=== PATIENT | male | born 1980 | race Caucasian/White ===

== ENCOUNTER 2019-06-01 20:54 | Observation (INO) ==
[2019-06-01 21:27] LABS: Basophils % 0.3 % (0.1-2.0); Eosinophils # 0.1 K/mm3 (0.0-0.4); Eosinophils % 0.7 % (0.1-12.0); Hematocrit 42.4 % (42.0-52.0); Hemoglobin 14.4 g/dL (14.1-18.0); Lymphocytes # 1.8 K/mm3 (0.7-4.5); Lymphocytes % 11.2 % (10-50); Mean Corpuscular HGB Conc 34.1 g/dL (31.8-35.4); Mean Corpuscular Volume 87.9 fl (80-94); Mean Platelet Volume 6.8 fl (7.4-10.4); Monocytes # 1.1 K/mm3 (0.1-1.0); Neutrophils % 80.9 % (37.0-80.0); Platelet Count 325 K/mm3 (142-424); Red Blood Count 4.82 M/mm3 (4.60-6.20); Red Cell Distribution Width 13.2 % (11.5-17.5); White Blood Count 16.1 K/mm3 (4.8-10.8)
[2019-06-01 21:40] LABS: Albumin Level 3.6 gm/dL (3.4-5.0); Albumin/Globulin Ratio 0.8 (1.1-1.8); Anion Gap 12.6 mEq/L (5-15); Bilirubin,Total 0.4 mg/dL (0.2-1.0); Calcium 8.6 mg/dL (8.5-10.1); Globulin 4.7 gm/dl (1.3-3.2); Total Protein,Serum 8.3 gm/dL (6.4-8.2)
[2019-06-01 22:00] LABS: Erythrocyte Sedimentation Rate 27 mm/hr (0-15)
[2019-06-01 22:08] LABS: Lymphocytes % 13 % (10-50); Neutrophils % 83 % (42-76); RBC Morphology Normal; Total Cells Counted 100
--- NOTE | 2019-06-01 22:09 | Emergency Department Note ---
ED Disposition Clinical Impression: Tobacco use, IVDU (intravenous drug user) Abscess of skin or subcutaneous tissue Qualifiers: Site of cutaneous abscess: extremity Site of cutaneous abscess of extremity: upper extremity Laterality: left Qualified Code(s): L02.414 - Cutaneous abscess of left upper limb Disposition: Admitted as Observation Condition on Discharge: Good Instructions: DI for Skin Abscess Referrals: Mary Parker APRN [Primary Care Provider] - - Critical Care Critical Care Time: No Attestation: On 06/01/19, the high probability of a clinically significant, sudden or life threatening deterioration of the following system(s) required my full and direct attention, intervention and personal management. The time I documented below is in addition to time spent performing reported procedures but includes the following listed in this critical care notation. Medical Decision Making - Medical Records Medical records reviewed: Yes: I reviewed the patient's medical records. - Juan Inquiry Pt receiving controlled substance: No Vital Signs: 06/01/19 21:01 Temperature 99.4 F Temperature Source Oral Pulse Rate [Right Radial] 117 H Respiratory Rate 18 Blood Pressure [Right Arm] 161/100 H Blood Pressure Mean [Right Arm] 120 02 Sat by Pulse Oximetry 99 - Lab Data Lab results reviewed: Yes: I reviewed the patient's lab results. Lab Results 06/01/19 21:15: WBC 16.1 H, RBC 4.82, Hgb 14.4, Hct 42.4, MCV 87.9, MCH 29.9, MCHC 34.1, RDW 13.2, Plt Count 325, MPV 6.8 L, Neut % (Auto) 80.9 H, Lymph % (Auto) 11.2, [place] % (Auto) 7.0, Eos % (Auto) 0.7, Baso % (Auto) 0.3, Neut # (Auto) 13.0 H, Lymph # (Auto) 1.8, [place] # (Auto) 1.1 H, Eos # (Auto) 0.1, Baso # (Auto) 0.0, ESR 27 H 06/01/19 21:15: Sodium 140, Potassium 3.6, Chloride 103, Carbon Dioxide 28, Anion Gap 12.6, BUN 13, Creatinine 1.40 H, Estimated Creat Clear 79, Estimated GFR 57 L, Est GFR ( Amer) 69, Glucose 96, Calcium 8.6, Total Bilirubin 0.4, AST 10 L, ALT 12, Alkaline Phosphatase 89, C-Reactive Protein 1.0 H, Total Protein 8.3 H, Albumin 3.6, Globulin 4.7 H, Albumin/Globulin Ratio 0.8 L 06/01/19 21:15: Lactate 1.7 Result diagrams: 06/01/19 21:15 06/01/19 21:15 Orders (Tests/Meds): ED MEDICATIONS Generic Name Dose Route Start Last Admin Trade Name Freq PRN Reason Stop Dose Admin Sodium Chloride 1,000 mls @ 999 mls/hr 06/01/19 21:15 06/01/19 21:20 Sod Chlor 0.9% 1000ml Bag IV 06/01/19 22:15 999 mls/hr .Q1H1M ROSS Administration Discontinued Medications Generic Name Dose Route Start Last Admin Trade Name Freq PRN Reason Stop Dose Admin Ketorolac Tromethamine 30 mg 06/01/19 21:48 06/01/19 21:50 Toradol 30mg/Ml Vial IV 06/01/19 21:49 30 mg ONCE ONE Administration ORDERS Category Date Time Status XR elbow LT 2V Stat Exams 06/01/19 21:08 Taken Complete Blood Count Auto Diff Stat Lab 06/01/19 21:15 Results Erythrocyte Sedimentation Rate Stat Lab 06/01/19 21:15 Results Blood Culture Stat Micro 06/01/19 21:15 Received Skin/Abscess/FB HPI - General Chief complaint: Skin/Abscess/Foreign Body Stated complaint: left arm swollen Time Seen by Provider: 06/01/19 22:06 Mode of Arrival: Ambulatory Source of Information: Patient, Spouse, Medical Record Limitations: No Limitations Description of Symptoms (Recalled from ER Triage Doc. by RN): pt states he is an iv drug abuser and he states that his left elbow area is red swollen and painful. - History of Present Illness HPI narrative: pt reports ivdu and has swollen lx antecubital area - he denied any other c/o issues MD complaint: abscess/boil Onset (ago): hour(s) Tetanus up to date: unsure Location: LUE Severity: moderate Associated symptoms: denies other symptoms Treatments prior to arrival: none - Related Data Home Medications Medication Instructions Recorded Confirmed No Known Home Medications 06/01/19 06/01/19 Allergies Allergy/AdvReac Type Severity Reaction Status Date / Time No Known Allergies Allergy Verified 06/01/19 21:07 [facility] History - Hepatitis A Screen Drug use history?: Yes High risk sexual behaviors?: No History of sexually transmitted infection?: No Currently employed?: No Childcare worker?: No Do you have indoor plumbing?: Yes Do you have electricity?: Yes Attestation statement:: This patient has been screened for Hepatitis A risk factors. I have reviewed the patient's past medical history: Yes Medical History: Denies:: Cancer, Diabetes Mellitus Type 1, Diabetes Mellitus Type 2, MRSA Amputation: No - Social History Smoking Status: Current every day smoker # Packs/Day (cigarettes): 1 Alcohol Intake: never Substance Use Type: IV drugs, methamphetamine Occupational Status: unemployed ROS Obtained: Yes All systems reviewed & no additional complaints - Constitutional Constitutional: Denies fever(s) - Eyes Eyes: Denies change in vision - ENT Ears, Nose, Mouth, and Throat: Denies sore throat - Cardiovascular Cardiovascular: Denies chest pain - Respiratory Respiratory: No cough - Gastrointestinal Gastrointestingal: Denies: abdominal pain - Genitourinary Male Genitourinary: Denies hematuria - Musculoskeletal Musculoskeletal: Denies joint swelling - Integumentary/Breasts Skin/Breast: Reports as per HPI, Reports boil - Neurologic Neurologic: Denies seizure-like activity Physical Exam - General General appearance: alert - Head Head exam: normocephalic - Eye Eye exam: Present: PERRL, EOMI - ENT ENT exam: Present: mucous membranes dry - Neck Neck exam: Present: trachea midline - Respiratory Respiratory exam: Absent: respiratory distress - Cardiovascular Cardiovascular exam: Present: regular rate. Absent: systolic murmur, rubs - Abdominal Exam Abdominal exam: Present: soft - Extremities Exam Extremities exam: Absent: full ROM - Expanded Upper Extremity Exam Left Elbow exam: Present: tenderness, swelling, erythema. Absent: effusion - Expanded Lower Extremity Exam Left Neurovascular/Tendon exam: Present: normal capillary refill - Neurological Exam Neurological exam: Present: alert, oriented X3, CN II-XII intact - Psychiatric Psychiatric exam: Present: normal affect - Skin Skin exam: Present: other (no def abscess). Absent: rash
[2019-06-02 07:14] LABS: Basophils % 0.2 % (0.1-2.0); Eosinophils # 0.1 K/mm3 (0.0-0.4); Eosinophils % 0.7 % (0.1-12.0); Hematocrit 37.9 % (42.0-52.0); Lymphocytes # 2.3 K/mm3 (0.7-4.5); Lymphocytes % 13.4 % (10-50); Mean Corpuscular HGB Conc 33.3 g/dL (31.8-35.4); Mean Platelet Volume 6.9 fl (7.4-10.4); Monocytes # 1.4 K/mm3 (0.1-1.0); Monocytes % 8.4 % (1.7-9.3); Neutrophils # 13.2 K/mm3 (1.8-7.8); Neutrophils % 77.3 % (37.0-80.0); Platelet Count 263 K/mm3 (142-424); Red Blood Count 4.25 M/mm3 (4.60-6.20); Red Cell Distribution Width 13.5 % (11.5-17.5); White Blood Count 17.1 K/mm3 (4.8-10.8)
[2019-06-02 07:20] LABS: Anion Gap 9.9 mEq/L (5-15); Calcium 8.1 mg/dL (8.5-10.1)
[2019-06-02 07:34] LABS: Hemoglobin 12.6 g/dL (14.1-18.0)
--- NOTE | 2019-06-02 08:14 | Pharmacy Consult Notes ---
[facility] Pharmacy VTE Monitoring - Patient Demographics Admission date: 06/01/19 Report Date: 06/02/19 Time: 08:14 Allergies/Adverse Reactions: Patient Allergies No Known Allergies Allergy (Verified 06/01/19 21:07) Height: 1.85 m Weight: 79.435 kg Patient Problems: Current Active Problems Abscess of skin or subcutaneous tissue (Acute) Tobacco use (Acute) IVDU (intravenous drug user) (Acute) - VTE Risk Labs: VTE Related Lab Results Hgb 12.6 g/dL (14.1-18.0) L D 06/02/19 06:50 Hct 37.9 % (42.0-52.0) L 06/02/19 06:50 Plt Count 263 K/mm3 (142-424) 06/02/19 06:50 BUN 14 mg/dL (7-18) 06/02/19 06:50 Creatinine 1.18 mg/dL (0.70-1.30) 06/02/19 06:50 Estimated Creat Clear 96 mL/min (50-200) 06/02/19 06:50 Was VTE Risk Assessment Performed: No VTE Score: 0 VTE Risk Level: Very Low Risk - Prophylaxis VTE Prophylaxis Ordered?: Yes Types of VTE Prophylaxis: TEDS Knee High Location of Applied Device: Bilateral Lower Extremeties
--- NOTE | 2019-06-02 08:25 | Pharmacy Consult Notes ---
- Pharmacy Consult Date: 06/02/19 Time: 08:24 Referring provider: DR. CHAVEZ Reason for Consult:: VANCOMYCIN DOSING Allergies and ADEs:: Allergies Allergy/AdvReac Type Severity Reaction Status Date / Time No Known Allergies Allergy Verified 06/01/19 21:07 Home Medications:: Home Medications Medication Instructions Recorded Confirmed Type Gabapentin [Gabapentin 400mg Cap] 800 mg PO TID 06/01/19 06/01/19 History Height: 1.85 m Weight: 79.435 kg Laboratory Results:: Laboratory Results - last 24 hr 06/01/19 21:15: WBC 16.1 H, RBC 4.82, Hgb 14.4, Hct 42.4, MCV 87.9, MCH 29.9, MCHC 34.1, RDW 13.2, Plt Count 325, MPV 6.8 L, Neut % (Auto) 80.9 H, Lymph % (Auto) 11.2, [place] % (Auto) 7.0, Eos % (Auto) 0.7, Baso % (Auto) 0.3, Neut # (Auto) 13.0 H, Lymph # (Auto) 1.8, [place] # (Auto) 1.1 H, Eos # (Auto) 0.1, Baso # (Auto) 0.0, Total Counted 100, Neutrophils % (Manual) 83 H, Band Neutrophils % 4.0, Lymphocytes % (Manual) 13, Platelet Estimate Normal, RBC Morphology Normal, ESR 27 H 06/01/19 21:15: Sodium 140, Potassium 3.6, Chloride 103, Carbon Dioxide 28, Anion Gap 12.6, BUN 13, Creatinine 1.40 H, Estimated Creat Clear 79, Estimated GFR 57 L, Est GFR ( Amer) 69, Glucose 96, Calcium 8.6, Total Bilirubin 0.4, AST 10 L, ALT 12, Alkaline Phosphatase 89, C-Reactive Protein 1.0 H, Total Protein 8.3 H, Albumin 3.6, Globulin 4.7 H, Albumin/Globulin Ratio 0.8 L 06/01/19 21:15: Lactate 1.7 06/02/19 06:50: WBC 17.1 H, RBC 4.25 L, Hgb 12.6 L D, Hct 37.9 L, MCV 89.0, MCH 29.7, MCHC 33.3, RDW 13.5, Plt Count 263, MPV 6.9 L, Neut % (Auto) 77.3, Lymph % (Auto) 13.4, [place] % (Auto) 8.4, Eos % (Auto) 0.7, Baso % (Auto) 0.2, Neut # (Auto) 13.2 H, Lymph # (Auto) 2.3, [place] # (Auto) 1.4 H, Eos # (Auto) 0.1, Baso # (Auto) 0.0 06/02/19 06:50: Sodium 138, Potassium 3.9, Chloride 105, Carbon Dioxide 27, Anion Gap 9.9, BUN 14, Creatinine 1.18, Estimated Creat Clear 96, Estimated GFR 69, Est GFR ( Amer) 84 D, Glucose 118 H D, Calcium 8.1 L Medical History: Reports:: Hypertension Denies:: Cancer, Diabetes Mellitus Type 1, Diabetes Mellitus Type 2, MRSA Assessment and Plan - Assessment and plan all Dx Assessment and Plan for all problems:: BASED ON PATIENT FACTORS, RECOMMEND VANCOMYCIN 1500 MG IV Q12H. PHARMACY WILL MONITOR DAILY AND ADJUST APPROPRIATE.
[2019-06-02 08:28] LABS: Lymphocytes % 11 % (10-50); Monocytes % 10 % (2-9); Neutrophils % 77 % (42-76); RBC Morphology Normal; Total Cells Counted 100
--- NOTE | 2019-06-02 08:30 | Consult Report ---
*Admission Date: 06/01/19 *Reason for consult:: Left antecubital fossa infection *History of present illness: This is a 38-year-old gentleman with a history of IV drug abuse seen in consultation from Dr. Diaz after presenting with left antecubital fossa swelling and pain. He was diagnosed with cellulitis and possible early/small abscess. He was placed on vancomycin and the surgical service was consult. He states that he feels "much much better this morning". Review of Systems - Constitutional Denies fever(s) - Eyes Denies change in vision - ENT Denies difficulty swallowing - *Cardiovascular Denies chest pain - *Respiratory Denies cough - *Gastrointestinal Denies abdominal pain - Integumentary/Breasts Comments: Left antecubital fossa redness and swelling - *Neurologic Denies seizure-like activity [facility] History Medical History: Reports:: Hypertension Denies:: Cancer, Diabetes Mellitus Type 1, Diabetes Mellitus Type 2, MRSA *Have you ever received a pneumonia vaccine?: No *Have you received a flu vaccine this season?: Yes Amputation: No - *Social History Educational Level: Attended High School Smoking Status: Current every day smoker Tobacco Type: cigarettes # Packs/Day (cigarettes): 2 Alcohol Intake: current Alcohol Intake Frequency:: holidays/special occasions only Substance Use Type: marijuana, methamphetamine Last Used Substance: days (ago) *Occupational Status:: unemployed Household Members: spouse, children *Travel in the last 8 weeks: None - Psychiatric History Expresses thoughts of harming self/others: None Family Hx:: Unable to obtain Meds Home Medications Medication Instructions Recorded Confirmed Type Gabapentin [Gabapentin 400mg Cap] 800 mg PO TID 06/01/19 06/01/19 History Allergies Allergy/AdvReac Type Severity Reaction Status Date / Time No Known Allergies Allergy Verified 06/01/19 21:07 Exam Vital signs and Labs for Last 24 Hours: Temp Pulse Resp BP Pulse Ox 97.7 F 95 H 18 139/69 99 06/02/19 04:00 06/02/19 04:00 06/02/19 04:00 06/02/19 04:00 06/02/19 04:00 Laboratory Results - last 24 hr 06/01/19 21:15: WBC 16.1 H, RBC 4.82, Hgb 14.4, Hct 42.4, MCV 87.9, MCH 29.9, MCHC 34.1, RDW 13.2, Plt Count 325, MPV 6.8 L, Neut % (Auto) 80.9 H, Lymph % (Auto) 11.2, [place] % (Auto) 7.0, Eos % (Auto) 0.7, Baso % (Auto) 0.3, Neut # (Auto) 13.0 H, Lymph # (Auto) 1.8, [place] # (Auto) 1.1 H, Eos # (Auto) 0.1, Baso # (Auto) 0.0, Total Counted 100, Neutrophils % (Manual) 83 H, Band Neutrophils % 4.0, Lymphocytes % (Manual) 13, Platelet Estimate Normal, RBC Morphology Normal, ESR 27 H 06/01/19 21:15: Sodium 140, Potassium 3.6, Chloride 103, Carbon Dioxide 28, Anion Gap 12.6, BUN 13, Creatinine 1.40 H, Estimated Creat Clear 79, Estimated GFR 57 L, Est GFR ( Amer) 69, Glucose 96, Calcium 8.6, Total Bilirubin 0.4, AST 10 L, ALT 12, Alkaline Phosphatase 89, C-Reactive Protein 1.0 H, Total Protein 8.3 H, Albumin 3.6, Globulin 4.7 H, Albumin/Globulin Ratio 0.8 L 06/01/19 21:15: Lactate 1.7 06/02/19 06:50: WBC 17.1 H, RBC 4.25 L, Hgb 12.6 L D, Hct 37.9 L, MCV 89.0, MCH 29.7, MCHC 33.3, RDW 13.5, Plt Count 263, MPV 6.9 L, Neut % (Auto) 77.3, Lymph % (Auto) 13.4, [place] % (Auto) 8.4, Eos % (Auto) 0.7, Baso % (Auto) 0.2, Neut # (Auto) 13.2 H, Lymph # (Auto) 2.3, [place] # (Auto) 1.4 H, Eos # (Auto) 0.1, Baso # (Auto) 0.0 06/02/19 06:50: Sodium 138, Potassium 3.9, Chloride 105, Carbon Dioxide 27, Anion Gap 9.9, BUN 14, Creatinine 1.18, Estimated Creat Clear 96, Estimated GFR 69, Est GFR ( Amer) 84 D, Glucose 118 H D, Calcium 8.1 L I & O for Last 24 hours: Intake & Output 05/30/19 05/31/19 06/01/19 06/02/19 11:59 11:59 11:59 11:59 Intake Total 1350 / 1350 Balance 1350 / 1350 Weight 175 lb 2 oz - Constitutional no acute distress - *Routine Respiratory Exam Absent: respiratory distress - *Routine Cardiovascular Exam Present: RRR - *Routine Skin Exam Comments: Mild left antecubital fossa blush and mild and left antecubital fossa induration (improved per patient's report). No spreading cellulitis. No obvious fluctuance. Results - Labs 06/02/19 06:50 06/02/19 06:50 Laboratory Results - last 24 hr 06/01/19 21:15: WBC 16.1 H, RBC 4.82, Hgb 14.4, Hct 42.4, MCV 87.9, MCH 29.9, MCHC 34.1, RDW 13.2, Plt Count 325, MPV 6.8 L, Neut % (Auto) 80.9 H, Lymph % (Auto) 11.2, [place] % (Auto) 7.0, Eos % (Auto) 0.7, Baso % (Auto) 0.3, Neut # (A uto) 13.0 H, Lymph # (Auto) 1.8, [place] # (Auto) 1.1 H, Eos # (Auto) 0.1, Baso # (Auto) 0.0, Total Counted 100, Neutrophils % (Manual) 83 H, Band Neutrophils % 4.0, Lymphocytes % (Manual) 13, Platelet Estimate Normal, RBC Morphology Normal, ESR 27 H 06/01/19 21:15: Sodium 140, Potassium 3.6, Chloride 103, Carbon Dioxide 28, Anion Gap 12.6, BUN 13, Creatinine 1.40 H, Estimated Creat Clear 79, Estimated GFR 57 L, Est GFR ( Amer) 69, Glucose 96, Calcium 8.6, Total Bilirubin 0.4, AST 10 L, ALT 12, Alkaline Phosphatase 89, C-Reactive Protein 1.0 H, Total Protein 8.3 H, Albumin 3.6, Globulin 4.7 H, Albumin/Globulin Ratio 0.8 L 06/01/19 21:15: Lactate 1.7 06/02/19 06:50: WBC 17.1 H, RBC 4.25 L, Hgb 12.6 L D, Hct 37.9 L, MCV 89.0, MCH 29.7, MCHC 33.3, RDW 13.5, Plt Count 263, MPV 6.9 L, Neut % (Auto) 77.3, Lymph % (Auto) 13.4, [place] % (Auto) 8.4, Eos % (Auto) 0.7, Baso % (Auto) 0.2, Neut # ( Auto) 13.2 H, Lymph # (Auto) 2.3, [place] # (Auto) 1.4 H, Eos # (Auto) 0.1, Baso # (Auto) 0.0 06/02/19 06:50: Sodium 138, Potassium 3.9, Chloride 105, Carbon Dioxide 27, Anion Gap 9.9, BUN 14, Creatinine 1.18, Estimated Creat Clear 96, Estimated GFR 69, Est GFR ( Amer) 84 D, Glucose 118 H D, Calcium 8.1 L Assessment and Plan (1) Left arm cellulitis Current visit: Yes Status: Acute Category: Medical Code(s): L03.114 - C ellulitis of left upper limb Improving on vancomycin (2) Abscess of skin or subcutaneous tissue Current visit: Yes Status: Acute Qualifiers: Site of cutaneous abscess: extremity Site of cutaneous abscess of extremity: upper extremity Laterality: left Qualified Code(s): L02.414 - Cutaneous abscess of left upper limb Category: Medical Code(s): L02.91 - Cutaneous abscess, unspecified He has a possible very small/early abscess; however, definitive abscess for mation is questionable. He continues to show improvement on vancomycin and no obvious "drainable pocket" is present. Continue antibiotics No need for immediate surgical intervention Closely follow response to current therapy
--- NOTE | 2019-06-02 08:31 | H&P/Discharge Summary ---
General - General Admission date:: 06/01/19 Discharge date: 06/02/19 *Admission Date: 06/01/19 *Chief complaint: infection lt upper ext *History of present illness: this wm who has known ivdu presented to the ed with reddness and tender lt antecubital area - he denied any recent use of that area for ivdu- he has no other chronic disease - pt was admitted for iv abx and surg consult [facility] History I have reviewed the patient's past medical history: Yes Medical History: Reports:: Hypertension Denies:: Cancer, Diabetes Mellitus Type 1, Diabetes Mellitus Type 2, MRSA *Have you ever received a pneumonia vaccine?: No *Have you received a flu vaccine this season?: Yes Amputation: No - *Social History Educational Level: Attended High School Smoking Status: Current every day smoker Tobacco Type: cigarettes # Packs/Day (cigarettes): 2 Alcohol Intake: current Alcohol Intake Frequency:: holidays/special occasions only Substance Use Type: marijuana, methamphetamine Last Used Substance: days (ago) *Occupational Status:: unemployed Household Members: spouse, children *Travel in the last 8 weeks: None - Psychiatric History Expresses thoughts of harming self/others: None Family Hx:: Unable to obtain Review of Systems - Review of Systems Review of systems:: pertinent systems reviewed and negative unless documented below - Constitutional Denies fever(s) - Eyes Denies blurry vision - ENT Denies sore throat - *Cardiovascular Denies chest pain - *Respiratory Denies cough - *Gastrointestinal Denies abdominal pain - *Genitourinary Denies blood in urine - *Musculoskeletal Denies joint pain - Integumentary/Breasts Reports other (reddness lt antecubital ) - *Neurologic Denies localized weakness, Denies seizure-like activity - Psychiatric Denies anxiety Exam Vital signs and Labs for Last 24 Hours: Temp Pulse Resp BP Pulse Ox 97.7 F 95 H 18 139/69 99 06/02/19 04:00 06/02/19 04:00 06/02/19 04:00 06/02/19 04:00 06/02/19 04:00 Laboratory Results - last 24 hr 06/01/19 21:15: WBC 16.1 H, RBC 4.82, Hgb 14.4, Hct 42.4, MCV 87.9, MCH 29.9, MCHC 34.1, RDW 13.2, Plt Count 325, MPV 6.8 L, Neut % (Auto) 80.9 H, Lymph % (Auto) 11.2, [place] % (Auto) 7.0, Eos % (Auto) 0.7, Baso % (Auto) 0.3, Neut # (Auto) 13.0 H, Lymph # (Auto) 1.8, [place] # (Auto) 1.1 H, Eos # (Auto) 0.1, Baso # (Auto) 0.0, Total Counted 100, Neutrophils % (Manual) 83 H, Band Neutrophils % 4.0, Lymphocytes % (Manual) 13, Platelet Estimate Normal, RBC Morphology Normal, ESR 27 H 06/01/19 21:15: Sodium 140, Potassium 3.6, Chloride 103, Carbon Dioxide 28, Anion Gap 12.6, BUN 13, Creatinine 1.40 H, Estimated Creat Clear 79, Estimated GFR 57 L, Est GFR ( Amer) 69, Glucose 96, Calcium 8.6, Total Bilirubin 0.4, AST 10 L, ALT 12, Alkaline Phosphatase 89, C-Reactive Protein 1.0 H, Total Protein 8.3 H, Albumin 3.6, Globulin 4.7 H, Albumin/Globulin Ratio 0.8 L 06/01/19 21:15: Lactate 1.7 06/02/19 06:50: WBC 17.1 H, RBC 4.25 L, Hgb 12.6 L D, Hct 37.9 L, MCV 89.0, MCH 29.7, MCHC 33.3, RDW 13.5, Plt Count 263, MPV 6.9 L, Neut % (Auto) 77.3, Lymph % (Auto) 13.4, [place] % (Auto) 8.4, Eos % (Auto) 0.7, Baso % (Auto) 0.2, Neut # (Auto) 13.2 H, Lymph # (Auto) 2.3, [place] # (Auto) 1.4 H, Eos # (Auto) 0.1, Baso # (Auto) 0.0, Total Counted 100, Neutrophils % (Manual) 77 H, Band Neutrophils % 1.0, Lymphocytes % (Manual) 11, Monocytes % (Manual) 10 H, Metamyelocytes % 1.0, Platelet Estimate Normal, RBC Morphology Normal 06/02/19 06:50: Sodium 138, Potassium 3.9, Chloride 105, Carbon Dioxide 27, Anion Gap 9.9, BUN 14, Creatinine 1.18, Estimated Creat Clear 96, Estimated GFR 69, Est GFR ( Amer) 84 D, Glucose 118 H D, Calcium 8.1 L I & O for Last 24 hours: Intake & Output 05/30/19 05/31/19 06/01/19 06/02/19 11:59 11:59 11:59 11:59 Intake Total 1350 / 1350 Balance 1350 / 1350 Weight 175 lb 2 oz - Constitutional no acute distress, average body habitus - *Routine HEENT Exam Head: Present: normocephalic Eye: Present: EOMI, PERRL ENT: Present: mucous membranes dry - *Routine Neck Exam Present: supple. Absent: JVD - *Routine Respiratory Exam Present: CTA bilaterally - *Routine Cardiovascular Exam Present: RRR. Absent: murmur, gallop, rubs - *Routine Abdominal Exam Present: soft - *Routine Extremities Exam Present: full ROM. Absent: calf tenderness - *Routine Skin Exam Present: intact - *Routine Neurological Exam Present: alert, oriented X3, CN II-XII intact - Routine Psychiatric Exam Present: normal affect Hospital Course Hospital Course: pt has did well and he feels better this am - pt was seen by surg and no i/d required at this time- has a possible very small/early abscess; however, definitive abscess formation is questionable. He continues to show improvement on vancomycin and no obvious "drainable pocket" is present. Continue antibiotics No need for immediate surgical intervention Closely follow response to current therapy will d/c on po abx at this time and have pt see his pcp or our office on tuesday Results Labs on day of discharge: Labs from last 24 hours 06/02/19 06/02/19 06/01/19 06:50 06:50 21:15 WBC 17.1 H RBC 4.25 L Hgb 12.6 L D Hct 37.9 L MCV 89.0 MCH 29.7 MCHC 33.3 RDW 13.5 Plt Count 263 MPV 6.9 L Neut % (Auto) 77.3 Lymph % (Auto) 13.4 [place] % (Auto) 8.4 Eos % (Auto) 0.7 Baso % (Auto) 0.2 Neut # (Auto) 13.2 H Lymph # (Auto) 2.3 [place] # (Auto) 1.4 H Eos # (Auto) 0.1 Baso # (Auto) 0.0 Total Counted 100 Neutrophils % (Manual) 77 H Band Neutrophils % 1.0 Lymphocytes % (Manual) 11 Monocytes % (Manual) 10 H Metamyelocytes % 1.0 Platelet Estimate Normal RBC Morphology Normal ESR Sodium 138 Potassium 3.9 Chloride 105 Carbon Dioxide 27 Anion Gap 9.9 BUN 14 Creatinine 1.18 Estimated Creat Clear 96 Estimated GFR 69 Est GFR ( Amer) 84 D Glucose 118 H D Lactate 1.7 Calcium 8.1 L Total Bilirubin AST ALT Alkaline Phosphatase C-Reactive Protein Total Protein Albumin Globulin Albumin/Globulin Ratio 06/01/19 06/01/19 21:15 21:15 WBC 16.1 H RBC 4.82 Hgb 14.4 Hct 42.4 MCV 87.9 MCH 29.9 MCHC 34.1 RDW 13.2 Plt Count 325 MPV 6.8 L Neut % (Auto) 80.9 H Lymph % (Auto) 11.2 [place] % (Auto) 7.0 Eos % (Auto) 0.7 Baso % (Auto) 0.3 Neut # (Auto) 13.0 H Lymph # (Auto) 1.8 [place] # (Auto) 1.1 H Eos # (Auto) 0.1 Baso # (Auto) 0.0 Total Counted 100 Neutrophils % (Manual) 83 H Band Neutrophils % 4.0 Lymphocytes % (Manual) 13 Monocytes % (Manual) Metamyelocytes % Platelet Estimate Normal RBC Morphology Normal ESR 27 H Sodium 140 Potassium 3.6 Chloride 103 Carbon Dioxide 28 Anion Gap 12.6 BUN 13 Creatinine 1.40 H Estimated Creat Clear 79 Estimated GFR 57 L Est GFR ( Amer) 69 Glucose 96 Lactate Calcium 8.6 Total Bilirubin 0.4 AST 10 L ALT 12 Alkaline Phosphatase 89 C-Reactive Protein 1.0 H Total Protein 8.3 H Albumin 3.6 Globulin 4.7 H Albumin/Globulin Ratio 0.8 L DS: Diagnosis - Discharge Diagnosis (1) IVDU (intravenous drug user) Status: Acute (2) Left arm cellulitis Status: Acute (3) Tobacco use Status: Acute Discharge Plan - Patient Discharge Instructions ACTIVITY: Continue current activity DIET: continue same diet Patient Instructions: DI for Skin Abscess - Follow up Plan Disposition: Home, Self-Snf Medications: Home Medications Medication Instructions Recorded Confirmed Type Gabapentin [Gabapentin 400mg Cap] 800 mg PO TID 06/01/19 06/01/19 History Sulfamethoxazole/Trimethoprim 1 each PO BID #14 tab 06/02/19 Rx [Bactrim DS tablet] cephALEXin [Keflex 500mg Cap] 500 mg PO TID #30 cap 06/02/19 Rx Prescriptions/Medication Reconciliation: New cephALEXin [Keflex 500mg Cap] 500 mg PO TID #30 cap Sulfamethoxazole/Trimethoprim [Bactrim DS tablet] 1 each PO BID #14 tab Continued Gabapentin [Gabapentin 400mg Cap] 800 mg PO TID
== END 2019-06-02 13:04 | disposition home or self-care (01) ==
LOC: ER 20:54 → 2ND 20:54
PROVIDERS: ADMIT Emergency Medicine; ATTEND Emergency Medicine
DX: F15.20 Other stimulant dependence, uncomplicated; L02.414 Cutaneous abscess of left upper limb; Z72.0 Tobacco use
CPT/HCPCS: 71020; 71046; 73070; 80048; 80053; 83605; 85007; 85025; 85651; 86140; 87040; 96365; 96367; 96375; 99284; G0378; J3370